=== PATIENT | female | born 1970 | race Hispanic/Latino ===

== ENCOUNTER 2023-11-30 15:44 | Outpatient (CLI) | payer OTHER ==
[2023-11-30 17:05] LABS: #Basophils 0.1 10x3/uL (0.0-0.2); #Eosinphils 0.1 10x3/uL (0.0-0.5); #Monocytes 0.6 10x3/uL (0.0-1.1); #Neutrophils 4.5 10x3/uL (1.5-8.4); %Basophils 0.7 % (0.0-2.0); %Eosinophils 1.3 % (0.0-6.0); %Lymphocytes 31.4 % (18.0-47.0); %Monocytes 7.4 % (0.0-10.0); %Neutrophils 58.9 % (40.0-75.0); Hematocrit 40.5 % (34.9-44.5); Hemoglobin 13.5 g/dL (12.0-15.5); Mean Corpuscular HGB CONC 33.3 g/dL (32.0-36.0); Mean Corpuscular Hemoglobin 30.4 pg (27.0-33.0); Mean Corpuscular Volume 91.2 fl (81.6-98.3); Mean Platelet Volume 10.7 fl (7.4-10.4); Platelet Count 230 10x3/uL (150-450); RBC Distribution Width 12.8 % (11.5-14.5); Red Blood Cell (RBC) Count 4.44 10x6/uL (3.90-5.03); White Blood Cell (WBC) Count 7.6 10x3/uL (3.5-10.5)
[2023-11-30 17:17] LABS: ALT (SGPT) 34 U/L (8-55); AST (SGOT) 19 U/L (5-34); Albumin 4.5 g/dL (3.5-5.0); Alkaline Phosphatase 53 U/L (40-110); Anion Gap 16 mmol/L (10-20); BUN (Urea Nitrogen) 10 mg/dL (9.8-20.1); Bilirubin, Direct 0.2 mg/dL (0.1-0.3); Bilirubin, Total 0.6 mg/dL (0.2-1.2); Calc. Creatinine Clearance 0 mL/min (70-130); Calcium 9.7 mg/dL (7.8-10.44); Carbon Dioxide 27 mmol/L (22-29); Chloride 104 mmol/L (98-107); Estimated GFR 103; Globulin 2.5 g/dL (2.4-3.5); Glucose 142 mg/dL (70-105); Potassium 3.6 mmol/L (3.5-5.1); Sodium 143 mmol/L (136-145)
== END 2023-11-30 15:45 | disposition home or self-care (01) ==
LOC: LABBT 15:44
PROVIDERS: ATTEND Surgery
DX: Z01.818 Encounter for other preprocedural examination (principal); K80.20 Calculus of gallbladder without cholecystitis without obstruction
CPT/HCPCS: 80053; 80076; 85025; 93005; 93010

== ENCOUNTER 2023-12-04 06:16 | Day surgery (SDC) | payer OTHER ==
[2023-11-30 16:12] VITALS: BMI 23.3
[2023-12-04] MEDS ORDERED: cefOXitin 2 GM VIAL ONE (08:48)
[2023-12-04] MEDS ORDERED: Sodium Chloride 0.9% 100 ML ONE (08:49)
[2023-12-04] MEDS ORDERED: Bupivacaine 0.25% HCL 30 ML VIAL ONE (08:53)
[2023-12-04] MEDS ORDERED: EPINEPHrine 1 MG/ML VIAL ONE (08:53)
[2023-12-04] MEDS ORDERED: fentaNYL 50 mcg/mL 1 mL Vial ONE (08:59)
[2023-12-04] MEDS ORDERED: PROPOFOL 20 ML ONE (08:59)
[2023-12-04] MEDS ORDERED: Rocuronium Bromide 10 MG/ML (10ML VIAL) ONE (08:59)
[2023-12-04] MEDS ORDERED: Lidocaine 1% PF 5 ML VIAL ONE (08:59)
[2023-12-04] MEDS ORDERED: Ondansetron PF 4 MG/2 ML Vial ONE (09:21)
[2023-12-04] MEDS ORDERED: PHENYLEPHRINE-NS 100 MCG/ML 10 ML SYRINGE ONE (09:27)
[2023-12-04] MEDS ORDERED: SUGAMMADEX SODIUM 200 MG/2 ML VIAL ONE (09:43)
[2023-12-04] MEDS ORDERED: fentaNYL PF 100 MCG/2 ML SYRINGE ONE (10:09)
[2023-12-04] MEDS ORDERED: HYDROcodone/Acetaminophen 5/325 mg Tablet ONE (11:30)
== END 2023-12-04 12:50 | disposition home or self-care (01) ==
LOC: SDC 06:16
PROVIDERS: ATTEND Surgery
PROC: 0FT44ZZ Resection of Gallbladder, Percutaneous Endoscopic Approach (ICD-10-PCS; principal; 2023-12-04)
DX: K80.10 Calculus of gallbladder with chronic cholecystitis without obstruction (principal); E11.9 Type 2 diabetes mellitus without complications; E78.5 Hyperlipidemia, unspecified; Z79.84 Long term (current) use of oral hypoglycemic drugs; Z79.82 Long term (current) use of aspirin; Z79.899 Other long term (current) drug therapy
CPT/HCPCS: 88304; C1889; J0171; J0694; J2405; J2704; J3010; J3490; S0020

== ENCOUNTER 2024-01-29 08:16 | Outpatient (CLI) | payer OTHER | END 2024-01-29 08:17 | disposition home or self-care (01) | LOC: ULT 08:16 | PROVIDERS: ATTEND Surgery | DX: K80.20 Calculus of gallbladder without cholecystitis without obstruction (principal); K76.0 Fatty (change of) liver, not elsewhere classified; K83.8 Other specified diseases of biliary tract | CPT/HCPCS: 76705 ==